=== PATIENT | female | born 1940 | race Caucasian/White ===

== ENCOUNTER 2023-07-04 18:29 | Inpatient (IN) ==
[2023-07-05 02:29] LABS: ABS Basophils 0.1 10^3/uL (0.0-0.1); ABS Eosinophils 0.1 10^3/uL (0.0-0.5); ABS Lymphocytes 1.1 10^3/uL (1.0-4.8); ABS Monocytes 0.7 10^3/uL (0.0-0.9); ABS Neutrophils 5.4 10^3/uL (1.5-7.6); ABS Nucleated RBC 0.01 10^3/ul; Eosinophil % 1.6 %; Hematocrit 43.7 % (35-45); Hemoglobin 14.3 g/dL (11.5-14.3); Lymphocyte % 15.2 %; Mean Corpuscular Hemoglobin 30.9 pg (27-33); Mean Corpuscular Hgb Conc 32.8 g/dL (31-36); Mean Corpuscular Volume 94.2 fL (80-97); Mean Platelet Volume 9.7 fL (7.5-11.2); Nucleated Red Blood Cells % 0.1 %/100WBC (0.0-0.8); Platelet Count 196 10^3/uL (150-450); Red Blood Count 4.64 10^6/uL (3.63-4.92); Red Cell Distribution Width 14.6 % (12-17); White Blood Count 7.4 10^3/uL (3.8-11.8)
[2023-07-05 02:41] LABS: INR 1.75 (0.83-1.13)
[2023-07-05 03:09] LABS: Albumin 3.9 g/dL (3.2-5.2); Albumin/Globulin Ratio 1.6 (1-3); Calcium 9.8 mg/dL (8.6-10.3); Creatinine, Serum 0.63 mg/dL (0.51-0.95); Globulin 2.4 g/dL (2-4); Magnesium 1.8 mg/dL (1.9-2.7); Phosphorus 3.6 mg/dL (2.5-5.0); Potassium 3.6 mmol/L (3.5-5.0); Total Bilirubin 0.8 mg/dL (0.2-1.0); Total Protein 6.3 g/dL (6.4-8.9); eGFR CKD-EPI 87.4 (>60)
[2023-07-05] MEDS: cefTRIAXone 1 gm/50 mL D5W 1 GM/50 ML BAG IV SCH (03:24)
[2023-07-05] MEDS: Azithromycin 500 mg/250 ml NS 500 MG/250 ML BAG IVPB SCH (04:34)
[2023-07-05] MEDS: Magnesium Sulfate 2 gm BAG 2 GM/50 ML BAG IVPB ONE (06:18)
[2023-07-05] MEDS: Enoxaparin 40 MG/0.4 ML SYR SUBCUT SCH (06:21)
[2023-07-05] MEDS: KCL 20 MEQ/100 ML IVPREMIX 20 MEQ/100 ML BAG IV ONE (07:29)
[2023-07-05] MEDS: Furosemide 20 mg/2 ml IV VIAL IV SLOW PU ONE (13:04)
[2023-07-05 15:39] LABS: Urine Appearance Clear; Urine Bilirubin Negative (Negative); Urine Blood 1+ (Negative); Urine Color Light-Yellow; Urine Glucose Negative (Negative); Urine Ketones Negative (Negative); Urine Nitrite Negative (Negative); Urine Protein Negative (Negative); Urine Specific Gravity 1.012 (1.002-1.030); Urine Urobilinogen Negative (Negative); Urine pH 7.5 (5.0-8.0)
[2023-07-05 15:46] LABS: Urine Bacteria Absent /HPF (Absent); Urine Red Blood Cell 2+(6-10/hpf) /HPF (0-Trace); Urine Squamous Epithelial Cell Present /HPF (Absent); Urine White Blood Cell Trace(0-5/hpf) /HPF (0-Trace)
[2023-07-05] MEDS: hydrALAZINE 20 mg/ml 1 ML Vial IV IV SLOW PU PRN (23:41)
[2023-07-06] MEDS: Furosemide 40 mg/4 ml IV VIAL IV ONE (10:32)
[2023-07-07] MEDS: cefTRIAXone 1 gm/50 mL D5W 1 GM/50 ML BAG IV SCH (05:28)
[2023-07-07] MEDS: Azithromycin 500 mg/250 ml NS 500 MG/250 ML BAG IVPB SCH (06:11)
[2023-07-07] MEDS ORDERED: Lorazepam PYXIS KEY PRN ×2 (06:35→14:16)
[2023-07-07] MEDS: Furosemide 40 mg/4 ml IV VIAL IV SLOW PU ONE (07:41)
[2023-07-07] MEDS: levETIRAcetam 1000MG IVPREMIX 1,000 MG/100 ML BAG IVPB ONE ×2 (07:41→09:06)
[2023-07-07] MEDS: LORazepam 2 mg VIAL 1 ml IV PUSH ONE ×2 (07:49→14:00)
[2023-07-07 10:08] LABS: ABS Lymphocytes 0.3 10^3/uL (1.0-4.8); ABS Monocytes 1.5 10^3/uL (0.0-0.9); Eosinophil % 0.1 %; Hematocrit 45.7 % (35-45); Mean Corpuscular Hemoglobin 30.6 pg (27-33); Mean Corpuscular Hgb Conc 32.8 g/dL (31-36); Mean Corpuscular Volume 93.3 fL (80-97); Mean Platelet Volume 10.2 fL (7.5-11.2); Platelet Count 184 10^3/uL (150-450); Red Cell Distribution Width 14.5 % (12-17); White Blood Count 14.8 10^3/uL (3.8-11.8)
[2023-07-07] MEDS: LORazepam 2 mg VIAL 1 ml ONE ×3 (10:34→14:22)
[2023-07-07] MEDS ORDERED: Metoprolol Tartrate 5 mg VIAL 5 ml VIAL (1 mg/ml) IV PRN (11:03)
[2023-07-07 13:52] LABS: Calcium 9.7 mg/dL (8.6-10.3); Creatinine, Serum 0.73 mg/dL (0.51-0.95); Magnesium 1.3 mg/dL (1.9-2.7); Potassium 3.2 mmol/L (3.5-5.0)
[2023-07-07] MEDS: LORazepam 2 mg VIAL 1 ml IV PUSH PRN (14:05)
[2023-07-07] MEDS: Valproic Acid IV 2,000 MG in NS 0.9% 100 ml BAG 100 ML IVPB ONE (14:31)
[2023-07-07] MEDS: KCL 20 MEQ/100 ML IVPREMIX 20 MEQ/100 ML BAG IV ONE (16:03)
[2023-07-07] MEDS: levETIRAcetam 1000MG IVPREMIX 1,000 MG/100 ML BAG IVPB SCH (19:53)
[2023-07-07] MEDS: Magnesium Sulf 4 GM/100 ML IV 4,000 MG/100 ML BAG IVPB ONE (20:24)
[2023-07-07] MEDS: KCL 20 MEQ/100 ML IVPREMIX 20 MEQ/100 ML BAG IV SCH (21:31)
[2023-07-07] MEDS ORDERED: LORazepam 2 mg VIAL 1 ml IV PUSH PRN (21:35)
[2023-07-07] MEDS: LORazepam 2 mg VIAL 1 ml IV PUSH SCH (21:39)
[2023-07-07] MEDS: Valproic Acid IV 500 MG in NS 0.9% 100 ml BAG 100 ML IVPB SCH (21:56)
[2023-07-08 01:43] VITALS: BP 94/76
[2023-07-08] MEDS: Furosemide 40 mg/4 ml IV VIAL IV ONE (02:13)
[2023-07-08] MEDS ORDERED: Ondansetron 4 mg VIAL 2 MG/ML 2 ml VIAL IV PRN (02:30)
== END 2023-07-08 09:55 | disposition expired | DRG 65 ==
LOC: MEDTELE 20:15 → INTOOBSV 20:15 → SUATTDRO 20:15
PROVIDERS: ADMIT Student in an Organized Health Care Education/Training Program; ATTEND Internal Medicine